=== PATIENT | female | born 1945 | race Caucasian/White ===

== ENCOUNTER 2024-08-17 11:38 | Emergency (ER) | payer MEDICARE ==
[2024-08-17 11:52] VITALS: BP 147/65; PULSE 72; RESP 16; TEMP 98.3
--- NOTE | 2024-08-17 13:11 | ED ---
General Adult HPI - General Chief complaint: Fall Stated complaint: Fall-Head injury Time Seen by Provider: 08/17/24 12:14 Source: patient, family Mode of arrival: wheelchair - History of Present Illness Initial comments: Patient is a 79-year-old female presenting today for generalized weakness and fall. Patient states that she woke up on the floor after falling out of bed this morning around 2 AM. She states does not remember the fall and believes she was sleeping and potentially had a dream that caused her to roll out of bed. She said the sheets were tangled underneath of her. She was unable to get up off the floor and to called her friend to come and help her off the floor. She was able to be assisted off of the floor. States she does not feel she spent much time on the floor before her friend got to her. She sustained a bruise to her left hand and left forehead and left elbow. She endorses a large contusion to her left buttock as well. She states she is being treated for UTI since this last Sunday by her PCP. She is on ciprofloxacin. Endoreses pro gressively worsening generalized weakness. She is usually able to ambulate dependently or with her walker however over the last day or so she has had difficulty ambulating even with her walker. She denies fevers, chills, chest pain, shortness of breath, nausea, vomiting, diarrhea, melena, hematochezia, abdominal pain or hematuria. She is not on blood thinners. - Related Data Allergies Allergy/AdvReac Type Severity Reaction Status Date / Time acetaminophen [From [place]] AdvReac Unknown Verified 08/17/24 11:55 cephalexin [From [place]] AdvReac Unknown Verified 08/17/24 11:55 hydrocodone [From [place]] AdvReac Unknown Verified 08/17/24 11:55 Iodinated Contrast Media AdvReac Rash/Hives Verified 08/17/24 11:55 Penicillins AdvReac Unknown Verified 08/17/24 11:55 sulfamethoxazole AdvReac Unknown Verified 08/17/24 11:55 trimethoprim AdvReac Unknown Verified 08/17/24 11:55 vancomycin AdvReac Unknown Verified 08/17/24 11:55 Review of Systems ROS Statement: Those systems with pertinent positive or pertinent negative responses have been documented in the HPI. ROS Other: All systems not noted in ROS Statement are negative. Past Medical History Past Medical History: Hypertension, Thyroid Disorder History of Any Multi-Drug Resistant Organisms: MRSA Date of last positivie culture/infection: 1999 MDRO Source:: left upper arm Past Surgical History: Joint Replacement, Orthopedic Surgery Additional Past Surgical History / Comment(s): left arm surgery with bone graft from right hip 1999, Pin removal to left wrist and elbow, fixation of condylar, osteotomy of ulna, capsulectomcy of elbow and ligament repair of left elbow 2000, total hop replacement 2018, right periprostheitc hip fracture and 3 femur fractures 2021 Past Psychological History: No Psychological Hx Reported Smoking Status: Former smoker Past Alcohol Use History: Daily Past Drug Use History: None Reported General Exam - General Exam Comments Initial Comments: PE: CONSTITUTIONAL: No apparent distress, well appearing SKIN: Warm, dry, no jaundice, hives or petechiae. Mild erythema and and contusion to the left thenar eminence, large contusion over left elbow, unable to visualize left buttock as patient is in the hallway, contusion to the left forehead EYES: Pupils are equally round, extraocular movements intact without nystagmus, clear conjunctiva, non-icteric sclera HENT: Normocephalic, contusion to left forehead, moist mucus membranes, oropharynx clear without exudates NECK: , Full range of motion, normal appearance, no midline spinal tenderness to palpation, no signs of injury present PULMONARY: Clear to auscultation without wheezes, rhonchi, or rales, normal excursion, no accessory muscle use and no stridor CARDIOVASCULAR: Regular rate, rhythm, normal S1 and S2. No appreciated murmurs, rubs or gallops. Strong radial pulses with intact distal perfusion. No lower extremity edema GASTROINTESTINAL: Soft, active bowel sounds throughout, non-tender, non- distended, no palpable masses, no rebound or guarding. No hepatosplenomegaly MUSCULOSKELETAL:No midline spinal TTP, Visualized areas of the right upper extremity, right lower extremity and left lower extremity are atraumatuc, patient able to range these extremities through full range of motion, some mild pain in the left hip with flexion of the left hip, tenderness to palpation of th e distal left humerus, left elbow, difficulty fully flexing and extending at the left elbow , patient state has had a previous injury here and states this is not abnormal for her. Tenderness to palp of the left thenar eminence along the area of contusion, slight tenderness to palpation of the left hip, patient endorses pain in the left thigh with hip flexion, 4-5 strength in the left upper extremity, otherwise 5 out of 5 strength in remaining 3 extremities. LUE is neurovascularly intact NEUROLOGIC:_a/o x 3, GCS 15, normal mentation and speech. Moves all extremities x 4 without motor or sensory deficit, with exception of left elbow pain and difficulty flexing at the left elbow secondary to pain and swelling PSYCHIATRIC:_normal mood and affect, thought process is clear and linear Course Vital Signs 08/17/24 11:40 Temperature 98.3 F Pulse Rate 72 Respiratory 16 Rate Blood Pressure 147/65 O2 Sat by Pulse 98 Oximetry EKG Findings - EKG Comments: EKG Findings:: Sinus rhythm, intervals and axis are limits, no ischemic changes no arrhythmia Medical Decision Making - Medical Decision Making Was pt. sent in by a medical professional or institution (, PA, ANIMAL RESCUER, urgent care, hospital, or [facility]cc...) When possible be specific @ -No Did you speak to anyone other than the patient for history (EMS, parent, family, police, friend...)? What history was obtained from this source @Spoke with patient's friend at bedside, who stated patient seems to be getting progressively weaker over the course of the last week. Did you review nursing and triage notes (agree or disagree)? Why? @ -I reviewed and agree with nursing and triage notes Were old charts reviewed (outside hosp., previous admission, EMS record, old EKG, old radiological studies, urgent care reports/EKG's, [facility] records)? Report findings @ -No prior records available for review Differential Diagnosis (chest pain, altered mental status, abdominal pain women, abdominal pain men, vaginal bleeding, weakness, fever, dyspnea, syncope, headache, dizziness, GI bleed, back pain, seizure, CVA, palpatations, mental health, musculoskeletal)? @Differential Weakness: Hypoglycemia, shock, sepsis, hyponatremia, anemia, infection, CT, ETOH, adverse medicine reaction, overdose, stroke, this is not meant to be an all-inclusive list. Differential Musculoskeletal Muscular strain, contusion, ligament sprain, fracture, arthritis, septic arthritis, bursitis, cellulitis, muscle spasm, nerve compression, DVT, arterial occlusion, herpes zoster, electrolyte abnormality, tumor.... This is not meant to be in all inclusive list Differential diagnosis remains broad however toe contusions include contusion, concussion, traumatic intracranial hemorrhage, C-spine fracture, concusion, ligamentious injury, this is not an all inclusive list EKG interpreted by me (3pts min.). @ -As above X-rays interpreted by me (1pt min.). @Personally reviewed patient's x-rays, were significant for a comminuted distal 100% displaced humerus fracture. Radiologist noted an age-indeterminate right femur fracture. Otherwise no acute fractures noted. Chest x-ray showed no consolidations or pleural effusions. CT interpreted by me (1pt min.). @Personally reviewed CT brain C-spine I see no evidence of hemorrhage or mass effect or C-spine fracture. Radiologist does note remote right sided infarct, I agree with radiologist interpretation U/S interpreted by me (1pt. min.). @ -None done What testing was considered but not performed or refused? (CT, X-rays, U/S, labs)? Why? @ -None What meds were considered but not given or refused? Why? @ -None Did you discuss the management of the patient with other professionals (professionals i.e. , PA, ANIMAL RESCUER, lab, RT, psych nurse, elementary school social worker, hospital medicine director, teacher, field artillery officer, assistant case manager)? Give summary @Case was discussed with Dr. Covarrubias [facility] who can accepted patient for transfer. Patient was also discussed with Dr. Swanson, orthopedic surgery here at [facility], requested patient be transferred to a facility with higher level of care due to complexity of case Was smoking cessation discussed for >3mins.? @ -No Was critical care preformed (if so, how long)? @ -No Were there social determinants of health that impacted care today? How? (Homelessness, low income, unemployed, alcoholism, drug addiction, transportation, low edu. Level, literacy, decrease access to med. care, [facility], rehab)? @ -No Was there de-escalation of care discussed even if they declined (Discuss DNR or withdrawal of care, Hospice)? @ -No What co-morbidities impacted this encounter? (DM, HTN, Smoking, COPD, CAD, Cancer, CVA, ARF, Chemo, Hep., AIDS, mental health diagnosis, sleep apnea, morbid obesity)? @ -None Was patient admitted / discharged? Hospital course, mention meds given and route, prescriptions, significant lab abnormalities, going to OR and other pertinent info. Transfer to [facility]- this is a pleasant 79-year-old female presenting today for generalized weakness and fall out of bed after being diagnosed with a UTI. Vital signs are stable on assessment she is mildly hypertensive but not tachycardic or febrile. Obtained pt's permission to perform her assessment and discuss her care in the hallway. She is well-appearing in no acute distress. Physical exam as above. Discussed with patient plan for CT brain C-spine, x- rays, labs, urinalysis. I suspect patient's weakness may be secondary UTI h owever workup will remain broad. She is agreeable w/ plan of care. Labs labs significant for white blood count 13.42, sodium 127, no prior for comparison, chloride 94 bilirubin bilirubin 1.8, small leukocyte esterase and rare bacteria. Labs significant hyponatremia, sodium 127. Urinalysis showed trace leukocyte esterase and rare bacteria. Will continue patient on ciprofloxacin. Imaging was significant for remote right temporal infarct, I discussed this with patient she has no known history of a stroke denies any new focal weakness and has no focal deficits on exam. Additionally, XR showed comminuted distal humerus fracture, I discussed this with Dr. Swanson, orthopedics who feels patient can be transferred to facility with more orthopedic resources. X-ray of the hips pelvis commented on age-indeterminate right femur fracture, patient states she had a fracture of her right femur 3 years ago. She has no pain there now. Discussed plan for transfer w/ pt. Pt requested transfer to [facility] because her friend felt she would receive better care there. I did discuss w/ pt this would like delay her care and she was understanding of this. There was a delay in transfer as patient's PCP's PA called and felt patient should be transferred to [facility] or [facility]. Did discuss with her that pt was currently accepted at [facility] however they were persistent in requesting transfer to larger hospital. [facility] declined transfer. Fel[facility] Landa accepted patient transfer, Dr Covarrubias accepted patient for admission. Updated patient plan of care to which she was agreeable. Pt declined further pain control. Pt transferred in stable condition. Undiagnosed new problem with uncertain prognosis? @ -No Drug Therapy requiring intensive monitoring for toxicity (Heparin, Nitro, Insuli n, Cardizem)? @ -No Were any procedures done? @ -No Diagnosis/symptom? @Fall, distal left humerus fracture, generalized weakness, hyponatremia, UTI Acute, or Chronic, or Acute on Chronic? @ -Acute Uncomplicated (without systemic symptoms) or Complicated (systemic symptoms)? @Complicated Side effects of treatment? @ -No Exacerbation, Progression, or Severe Exacerbation? @ -No Poses a threat to life or bodily function? How? (Chest pain, USA, CT, pneumonia, PE, COPD, DKA, ARF, appy, cholecystitis, CVA, Diverticulitis, Homicidal, Suicidal, threat to staff... and all critical care pts) @Yes - Lab Data Result diagrams: 08/17/24 13:37 08/17/24 13:37 Lab Results 08/17/24 08/17/24 08/17/24 Range/Units 13:10 13:37 13:37 WBC 13.42 H (4.50-10.00) 10*3/uL RBC 3.73 L (4.10-5.20) 10*6/uL Hgb 12.0 (12.0-15.0) g/dL Hct 35.0 L (37.2-46.3) % MCV 93.8 (80.0-97.0) fL MCH 32.2 H (27.0-32.0) pg MCHC 34.3 (32.0-37.0) g/dL Plt Count 208 (140-440) 10*3/uL MPV 10.5 (9.5-12.2) fL Immature Gran % (Auto) 0.8 % Neutrophils % 85.4 % Lymphocytes % 5.4 % Monocytes % 7.8 % Eosinophils % 0.4 % Basophils % 0.2 % Immature Gran # 0.11 H (0.00-0.04) 10*3/uL Neutrophils # 11.46 H (1.80-7.70) 10*3/uL Lymphocytes # 0.72 L (0.90-5.00) 10*3/uL Monocytes # 1.05 H (0.20-1.00) 10*3/uL Eosinophils # 0.05 (0.04-0.35) 10*3/uL Basophils # 0.03 (0.00-0.10) 10*3/uL PT 9.9 L (10.0-12.5) sec INR 0.9 (<1.2) APTT 22.2 (22.0-30.0) sec Sodium (137-145) mmol/L Potassium (3.5-5.1) mmol/L Chloride (98-107) mmol/L Carbon Dioxide (22-30) mmol/L Anion Gap mmol/L BUN (7-17) mg/dL Creatinine (0.52-1.04) mg/dL Est GFR (CKD-EPI)AfAm (>60 ml/min/1.73 sqM) Est GFR (CKD-EPI)NonAf (>60 ml/min/1.73 sqM) Glucose (74-99) mg/dL POC Glucose (mg/dL) (70-110) mg/dL POC Glu Manager Requirements ID Plasma Lactic Acid Jax (0.7-2.0) mmol/L Calcium (8.4-10.2) mg/dL Magnesium (1.6-2.3) mg/dL Total Bilirubin (0.2-1.3) mg/dL AST (14-36) U/L ALT (4-34) U/L Alkaline Phosphatase (38-126) U/L Creatine Kinase (30-135) U/L Troponin I (0.000-0.034) ng/mL Total Protein (6.3-8.2) g/dL Albumin (3.5-5.0) g/dL Urine Color Colorless Urine Appearance Clear (Clear) Urine pH 7.0 (5.0-8.0) Ur Specific Vernon 1.005 (1.001-1.035) Urine Protein Negative (Negative) Urine Glucose (UA) Negative (Negative) Urine Ketones Negative (Negative) Urine Blood Negative (Negative) Urine Nitrite Negative (Negative) Urine Bilirubin Negative (Negative) Urine Urobilinogen <2.0 (<2.0) mg/dL Ur Leukocyte Esterase Small H (Negative) Urine RBC 1 (0-5) /hpf Urine WBC 2 (0-5) /hpf Ur Squamous Epith Cells <1 (0-4) /hpf Urine Bacteria Rare H (None) /hpf 08/17/24 08/17/24 08/17/24 Range/Units 13:37 13:37 13:37 WBC (4.50-10.00) 10*3/uL RBC (4.10-5.20) 10*6/uL Hgb (12.0-15.0) g/dL Hct (37.2-46.3) % MCV (80.0-97.0) fL MCH (27.0-32.0) pg MCHC (32.0-37.0) g/dL Plt Count (140-440) 10*3/uL MPV (9.5-12.2) fL Immature Gran % (Auto) % Neutrophils % % Lymphocytes % % Monocytes % % Eosinophils % % Basophils % % Immature Gran # (0.00-0.04) 10*3/uL Neutrophils # (1.80-7.70) 10*3/uL Lymphocytes # (0.90-5.00) 10*3/uL Monocytes # (0.20-1.00) 10*3/uL Eosinophils # (0.04-0.35) 10*3/uL Basophils # (0.00-0.10) 10*3/uL PT (10.0-12.5) sec INR (<1.2) APTT (22.0-30.0) sec Sodium 127 L (137-145) mmol/L Potassium 3.7 (3.5-5.1) mmol/L Chloride 94 L (98-107) mmol/L Carbon Dioxide 26 (22-30) mmol/L Anion Gap 7 mmol/L BUN 12 (7-17) mg/dL Creatinine 0.71 (0.52-1.04) mg/dL Est GFR (CKD-EPI)AfAm >90 (>60 ml/min/1.73 sqM) Est GFR (CKD-EPI)NonAf 82 (>60 ml/min/1.73 sqM) Glucose 120 H (74-99) mg/dL POC Glucose (mg/dL) (70-110) mg/dL POC Glu Manager Requirements ID Plasma Lactic Acid Jax 1.4 (0.7-2.0) mmol/L Calcium 9.9 (8.4-10.2) mg/dL Magnesium 1.7 (1.6-2.3) mg/dL Total Bilirubin 1.8 H (0.2-1.3) mg/dL AST 28 (14-36) U/L ALT 27 (4-34) U/L Alkaline Phosphatase 64 (38-126) U/L Creatine Kinase 123 (30-135) U/L Troponin I 0.019 (0.000-0.034) ng/mL Total Protein 6.4 (6.3-8.2) g/dL Albumin 4.0 (3.5-5.0) g/dL Urine Color Urine Appearance (Clear) Urine pH (5.0-8.0) Ur Specific [place] (1.001-1.035) Urine Protein (Negative) Urine Glucose (UA) (Negative) Urine Ketones (Negative) Urine Blood (Negative) Urine Nitrite (Negative) Urine Bilirubin (Negative) Urine Urobilinogen (<2.0) mg/dL Ur Leukocyte Esterase (Negative) Urine RBC (0-5) /hpf Urine WBC (0-5) /hpf Ur Squamous Epith Cells (0-4) /hpf Urine Bacteria (None) /hpf 08/17/24 Range/Units 16:52 WBC (4.50-10.00) 10*3/uL RBC (4.10-5.20) 10*6/uL Hgb (12.0-15.0) g/dL Hct (37.2-46.3) % MCV (80.0-97.0) fL MCH (27.0-32.0) pg MCHC (32.0-37.0) g/dL Plt Count (140-440) 10*3/uL MPV (9.5-12.2) fL Immature Gran % (Auto) % Neutrophils % % Lymphocytes % % Monocytes % % Eosinophils % % Basophils % % Immature Gran # (0.00-0.04) 10*3/uL Neutrophils # (1.80-7.70) 10*3/uL Lymphocytes # (0.90-5.00) 10*3/uL Monocytes # (0.20-1.00) 10*3/uL Eosinophils # (0.04-0.35) 10*3/uL Basophils # (0.00-0.10) 10*3/uL PT (10.0-12.5) sec INR (<1.2) APTT (22.0-30.0) sec Sodium (137-145) mmol/L Potassium (3.5-5.1) mmol/L Chloride (98-107) mmol/L Carbon Dioxide (22-30) mmol/L Anion Gap mmol/L BUN (7-17) mg/dL Creatinine (0.52-1.04) mg/dL Est GFR (CKD-EPI)AfAm (>60 ml/min/1.73 sqM) Est GFR (CKD-EPI)NonAf (>60 ml/min/1.73 sqM) Glucose (74-99) mg/dL POC Glucose (mg/dL) 144 H (70-110) mg/dL POC Glu Manager Requirements ID Jessicaval Jennifer Plasma Lactic Acid Jax (0.7-2.0) mmol/L Calcium (8.4-10.2) mg/dL Magnesium (1.6-2.3) mg/dL Total Bilirubin (0.2-1.3) mg/dL AST (14-36) U/L ALT (4-34) U/L Alkaline Phosphatase (38-126) U/L Creatine Kinase (30-135) U/L Troponin I (0.000-0.034) ng/mL Total Protein (6.3-8.2) g/dL Albumin (3.5-5.0) g/dL Urine Color Urine Appearance (Clear) Urine pH (5.0-8.0) Ur Specific Vernon (1.001-1.035) Urine Protein (Negative) Urine Glucose (UA) (Negative) Urine Ketones (Negative) Urine Blood (Negative) Urine Nitrite (Negative) Urine Bilirubin (Negative) Urine Urobilinogen (<2.0) mg/dL Ur Leukocyte Esterase (Negative) Urine RBC (0-5) /hpf Urine WBC (0-5) /hpf Ur Squamous Epith Cells (0-4) /hpf Urine Bacteria (None) /hpf Disposition Clinical Impression: Fall, Fracture of humerus, distal, closed, Hyponatremia, Urinary tract infection Disposition: OTHER INSTITUTION NOT DEFINED Condition: Stable Referrals: Carie Muñiz MD [Primary Care Provider] - 1-2 days - Out of Hospital Transfer - Req. Specs Out of Hospital Transfer - Requested Specifics: Other Emergency Center ([facility])
[2024-08-17 13:29] LABS: Appearance,Urine Clear (Clear); Bacteria,Urine Rare /hpf; Bilirubin,Urine Negative (Negative); Blood,Urine Negative (Negative); Color,Urine Colorless; Glucose,Urine (UA) Negative (Negative); Ketones,Urine Negative (Negative); Leukocyte Esterase,Urine Small (Negative); Nitrite,Urine Negative (Negative); Protein,Urine Negative (Negative); RBC,Urine 1 /hpf (0-5); Specific Gravity,Urine 1.005 (1.001-1.035); Squamous Epithelial Cell,Urine <1 /hpf (0-4); Urobilinogen,Urine <2.0 mg/dL (<2.0); WBC,Urine 2 /hpf (0-5)
[2024-08-17 13:42] LABS: Basophils % (A) 0.2 %; Eosinophils % (A) 0.4 %; Lymphocytes # (A) 0.72 10*3/uL (0.90-5.00); Lymphocytes % (A) 5.4 %; MCH 32.2 pg (27.0-32.0); MCHC 34.3 g/dL (32.0-37.0); MCV 93.8 fL (80.0-97.0); Mean Platelet Volume 10.5 fL (9.5-12.2); Monocytes % (A) 7.8 %; Neutrophils # (A) 11.46 10*3/uL (1.80-7.70); Neutrophils % (A) 85.4 %; Platelet Count 208 10*3/uL (140-440); RBC 3.73 10*6/uL (4.10-5.20); RDW 12.9 % (11.5-14.5); WBC 13.42 10*3/uL (4.50-10.00)
[2024-08-17 13:43] LABS: Basophils # (A) 0.03 10*3/uL (0.00-0.10); Eosinophils # (A) 0.05 10*3/uL (0.04-0.35); Monocytes # (A) 1.05 10*3/uL (0.20-1.00)
[2024-08-17 13:54] LABS: ALT 27 U/L (4-34); AST 28 U/L (14-36); African American GFR (CKD) >90 (>60 ml/min/1.73 sqM); Alkaline Phosphatase 64 U/L (38-126); Anion Gap 7 mmol/L; Blood Urea Nitrogen 12 mg/dL (7-17); Calcium 9.9 mg/dL (8.4-10.2); Carbon Dioxide 26 mmol/L (22-30); Chloride 94 mmol/L (98-107); Creatine Kinase 123 U/L (30-135); Glucose 120 mg/dL (74-99); Magnesium 1.7 mg/dL (1.6-2.3); Non-African American GFR(CKD) 82 (>60 ml/min/1.73 sqM); Potassium 3.7 mmol/L (3.5-5.1); Sodium 127 mmol/L (137-145); Total Bilirubin 1.8 mg/dL (0.2-1.3); Total Protein 6.4 g/dL (6.3-8.2)
--- NOTE | 2024-08-17 13:55 | CT ---
EXAMINATION TYPE: CT brain cspine wo con DATE OF EXAM: 08/17/2024 COMPARISON: CLINICAL INDICATION: Female, 79 years old with history of fall, left forehead contusion; PHH, fall, l eft forehead contusion TECHNIQUE: CT scan of the head and cervical spine are performed without contrast. CT DLP: 298.[address] CTDI: mGy Automated exposure control for dose reduction was used. None EXAMINATION TYPE: CT brain cspine wo con DATE OF EXAM: 08/17/2024 COMPARISON: None CLINICAL INDICATION: Female, 79 years old with history of fall, left forehead contusion; PHH, fall, l eft forehead contusion TECHNIQUE: CT scan of the head and cervical spine are performed without contrast. CT DLP: 298.[address] CTDI: mGy Automated exposure control for dose reduction was used. Findings: Head CT: Ventricles, basal cisterns and sulci over convexities are mildly enlarged consistent with mild genera lized atrophy. There is no mass effect or shift of midline structures. There is a moderate area of encephalomalacia involving the right occipital lobe consistent with a rem ote right occipital lobe infarct.. There is no acute intra or extra-axial hemorrhage. Posterior fossa including the brainstem, fourth ventricle and cerebellar pontine angles are grossly n ormal. The intraorbital contents appear normal and symmetric. Visualized paranasal sinuses are well aerated. The calvarium is intact CT cervical spine: Craniovertebral junction relationships and prevertebral soft tissues are normal. The cervical vertebral segments are normal in height and there is no fracture. There is a 2 mm annette listhesis of C2 on C3 There is moderate to marked disc space narrowing and spondylosis at the C3-4, C4-5, C5-6 and C6-7 lev els indicating moderate to marked degenerative disc disease. There is moderate facet arthropathy and uncovertebral joint arthropathy from C3 through C7. The bony cervical canal is widely patent. There is a 2 level mild bony neural foraminal encroachment and laterally. The paraspinal soft tissues unremarkable. IMPRESSION: 1. Head CT: No acute bleed or mass effect. Mild senescent changes. Remote right occipital infarct 2. CT cervical spine: No acute trauma. Moderate to marked multilevel degenerative disc disease and mo derate osteoarthritic facet joints and uncovertebral joints. [facility], Workstation: [id number] 08/17/2024 1:53 PM
[2024-08-17 14:00] LABS: INR 0.9 (<1.2); Partial Thromboplastin Time 22.2 sec (22.0-30.0); Prothrombin Time 9.9 sec (10.0-12.5)
--- NOTE | 2024-08-17 14:13 | XR ---
EXAMINATION TYPE: XR Hip Bilateral and AP pelvis, XR femur LT DATE OF EXAM: 08/17/2024 2:03 PM COMPARISON: None. CLINICAL INDICATION: Female, 79 years old with history of left buttock hematoma, L hip mitali, fall; PH H, pain TECHNIQUE: XR Hip Bilateral and AP pelvis, XR femur LT; hip was examined in the frontal and lateral p rojections and a AP pelvis. FINDINGS: Left femur: No acute fracture or dislocation. Vascular calcifications. No focal osseous erosion or aggressive per iosteal reaction. Moderate left knee compartmental degenerative osteoarthritis. Possible fibroid clark ges in the partially visualized pelvis. Moderate left hip degenerative osteoarthritic. Pelvis and bilateral hips: Pelvic bones appear grossly intact. 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 A ge-indeterminate fracture along the medial aspect of the mid right femoral shaft. No significant elen prosthetic lucency. IMPRESSION: 1. Age-indeterminate fracture involving the medial aspect of the mid right femoral shaft. Recommend correlation with any prior outside imaging if available. 2. No definite acute fracture or dislocation involving the left hip/femur. [facility], , 08/17/2024 2:11 PM
[2024-08-17] MEDS: SODIUM CHLORIDE 0.9% 500 ML 500 ML IV ONE (14:16)
--- NOTE | 2024-08-17 14:16 | XR ---
EXAMINATION TYPE: XR humerus LT, XR elbow limited LT DATE OF EXAM: 08/17/2024 2:10 PM COMPARISON: None CLINICAL INDICATION: Female, 79 years old with history of distal humerus swell, pain, fall; PHH, pain TECHNIQUE: XR humerus LT, XR elbow limited LT examined in frontal and lateral projections. FINDINGS: Orthopedic metallic plate and fixation screws involving the proximal ulna. There is an acut e comminuted displaced fracture of the distal humerus with medial dislocation of the distal fracture components. Extensive left elbow/upper cervical soft tissue swelling/edema. Portions of the fixation screws appear detached and displaced. Osseous structures demineralized. IMPRESSION: Comminuted displaced fracture of the distal humeral shaft as described above. [facility], , 08/17/2024 2:14 PM
--- NOTE | 2024-08-17 14:17 | XR ---
EXAMINATION TYPE: XR chest 2V DATE OF EXAM: 08/17/2024 2:10 PM COMPARISON: None. CLINICAL INDICATION: Female, 79 years old with history of generalized weakness, fall; H TECHNIQUE: XR chest 2V Frontal and lateral views of the chest. FINDINGS: Lungs/Pleura: There is no evidence of pleural effusion, focal consolidation, or pneumothorax. Mild r ight midlung scarring/atelectasis. Pulmonary vascularity: Unremarkable. Heart/mediastinum: Cardiomediastinal silhouette is unremarkable. Musculoskeletal: No acute osseous pathology. Other findings: None IMPRESSION: No acute cardiopulmonary disease/process. [facility], , 08/17/2024 2:15 PM
[2024-08-17] MEDS: ACETAMINOPHEN TAB 325 MG TAB PO STA (14:18)
--- NOTE | 2024-08-17 14:18 | XR ---
EXAMINATION TYPE: XR hand complete LT DATE OF EXAM: 08/17/2024 2:03 PM COMPARISON: None CLINICAL INDICATION: Female, 79 years old with history of bruising, TTP base of thumb, fall; PHH, gabriela n TECHNIQUE: XR hand complete LT Frontal, lateral and oblique views were obtained. FINDINGS: Osseous structures demineralized. No convincing radiographic evidence of acute fracture or dislocation involving the left hand. Carpal alignment appears grossly maintained. IMPRESSION: No acute fracture or dislocation involving the left hand. [facility], , 08/17/2024 2:16 PM
[2024-08-17 16:53] LABS: Glucose,Whole Blood 144 mg/dL (70-110)
== END 2024-08-17 18:08 | disposition other institution (70) ==
LOC: EC 11:38
DX: S42.402A Unspecified fracture of lower end of left humerus, initial encounter for closed fracture (principal); E87.1 Hypo-osmolality and hyponatremia; N39.0 Urinary tract infection, site not specified; Z86.73 Personal history of transient ischemic attack (TIA), and cerebral infarction without residual deficits; Z87.891 Personal history of nicotine dependence; Z88.0 Allergy status to penicillin; Z88.1 Allergy status to other antibiotic agents; Z88.2 Allergy status to sulfonamides; Z88.5 Allergy status to narcotic agent; Z91.041 Radiographic dye allergy status; Z88.8 Allergy status to other drugs, medicaments and biological substances; W06.XXXA Fall from bed, initial encounter
CPT/HCPCS: 36415; 70450; 71046; 72125; 73521; 80053; 81001; 82550; 83605; 83735; 84484; 85025; 85610; 85730; 87040; 93005; 99285